=== PATIENT | male | born 1955 | race African-American/Black ===

== ENCOUNTER → 2017-10-13 | Outpatient (CLI) | payer MEDICARE ==
[~2017-10-13] MED LIST: AMOXICOT500 M1 PO; ASPIRIN ADULT L81 M2 PO; ETODOLAC400 MG PO; FLEXERIL10 MG PO; HYDROCO/APAP TAB 7.5 PO; HYDROCODONE-APA1 TA2 PO; LISINOPRIL/HCTZ1 TA3 PO; NAPROXEN500 MG PO; OXYCODONE AND A1 TA4 PO; ROBITUSSIN120 ML/BOT PO
[2017-10-13 12:47] LABS: URINE BILIRUBIN - DIPSTICK NEGATIVE (NEG); URINE BLOOD NEGATIVE (NEG)
[2017-10-13 12:48] LABS: HEMOGLOBIN 14.9 g/dL (14.1-18.0); LYMPH % 34.9 % (10-50)
[2017-10-13 14:08] LABS: BUN 16 mg/dL (7-18)
[2017-10-13 14:09] LABS: GFR (ESTIMATED) 68 ML/MIN (>60)
--- NOTE | 2017-10-13 17:01 | RADIOLOGY REPORT PS360 ---
CHEST(2 VIEWS-NOT PORTABLE) HISTORY: HTN,PRE-OP ORDERING PHYSICIAN: Ace Lu MD PATIENT AGE: 62 years COMPARISON: None available FINDINGS: The cardiomediastinal silhouette and pulmonary vascularity are within normal limits. The lungs are clear without infiltrates, suspicious nodules, or pleural effusions. No acute bony abnormalities. IMPRESSION: Negative chest, no acute finding
--- NOTE | 2017-10-13 17:03 | RADIOLOGY REPORT PS360 ---
KUB (SINGLE VIEW) HISTORY: HTN,PRE-OP ORDERING PHYSICIAN: Ace Lu MD PATIENT AGE: 62 years COMPARISON: None FINDINGS: The bowel gas pattern is unremarkable. No obvious obstruction.. There is an 8 mm calcific density of overlying the lower pole the right kidney consistent with right nephrolithiasis just lateral to the L2 transverse process. There are degenerative changes in the lumbar spine with a neurostimulator device present overlying the right sacrum. IMPRESSION: Right nephrolithiasis
== END ==
LOC: LAB 10:02
PROVIDERS: Family Medicine
DX: N52.9 Male erectile dysfunction, unspecified (principal); Z01.818 Encounter for other preprocedural examination

== ENCOUNTER → 2017-10-17 | Outpatient (CLI) | payer MEDICARE | LOC: LAB 16:25 | DX: N52.9 Male erectile dysfunction, unspecified (principal); Z01.812 Encounter for preprocedural laboratory examination; R82.90 Unspecified abnormal findings in urine ==